=== PATIENT | male | born 1985 ===

== ENCOUNTER 2017-10-09 14:18 | Emergency (ER) | payer SELFPAY ==
[~2017-10-09] VITALS: Ht 185.4 cm; Wt 72.9 kg
[2017-10-09 14:23] VITALS: Ht 185.4 cm; Wt 72.9 kg
[2017-10-09] MEDS ORDERED: HYDR30CR75 PR (14:52)
[2017-10-09] MEDS ORDERED: DOCU-144 PO (14:52)
[2017-10-09] MEDS ORDERED: HYDR-906 PO (14:52)
[2017-10-09] MEDS ORDERED: LIDO40SO8 MM (14:53)
--- NOTE | 2017-10-09 14:57 | ERD ---
ER Documentation Chief Complaint Chief Complaint rectal pain/bleeding [id number] worse during BM HPI This 32-year-old male complains of rectal pain and bleeding for last 2 weeks. He had some diarrhea prior to this beginning. Is a bright red blood with bowel movements which are loose but no diarrhea or constipation. Has a history of hemorrhoids but these are much more severe. Denies any fevers, vomiting, abdominal pain. ROS All systems reviewed and are negative except as per history of present illness. Medications Home Meds Active Scripts Lidocaine 4% Topical (Lidocaine HCl) 4%-50 Ml Soln, 1 APPLIC MM q 1-2 h for 7 Days, BOT Prov:MARCIO AMES MD 10/09/17 Hydrocodone/Acetaminophen ([place] 5-325 Tablet) 1 Each Tablet, 1 EACH PO QID, # 15 TAB Prov:MARCIO AMES MD 10/09/17 Hydrocortisone Acetate* (Anusol-HC*) 30 Gm Cream.gm., 1 APPLIC RI TID for 10 Days, TUB Prov:MARCIO AMES MD 10/09/17 Docusate Sodium* (Colace*) 100 Mg Capsule, 100 MG PO TID, #60 CAP Prov:MACRIO AMES MD 10/09/17 Allergies Allergies: Coded Allergies: No Known Allergy (Unverified , 10/09/17) PMhx/Soc Medical and Surgical Hx: pt denies Medical Hx, pt denies Surgical Hx Hx Alcohol Use: No Hx Substance Use: No Hx Tobacco Use: No Smoking Status: Never smoker Physical Exam Vitals Vital Signs Date Time Temp Pulse Resp B/P Pulse Ox O2 Delivery O2 Flow Rate FiO2 10/09/17 14:23 96.8 86 20 117/65 100 Physical Exam Const: [] Alert, [id number]. Head: Atraumatic Eyes: Normal Conjunctiva ENT: Normal External Ears, Nose and Mouth. Neck: Full range of motion..~ No meningismus. Resp: Clear to auscultation bilaterally Cardio: Regular rate and rhythm, no murmurs Abd: Soft, non tender, non distended. Normal bowel sounds. Rectal exam shows significant external hemorrhoids with appears to be spontaneous evacuation of possible thrombosis. There is no erythema, warmth, fluctuance, active bleeding. Skin: No petechiae or rashes Back: No midline or flank tenderness Ext: No cyanosis, or edema Neur: Awake and alert Psych: Normal Mood and Affect Procedures/MDM Patient presents with painful external hemorrhoids. Signs or symptoms do not suggest abscess, active bleeding, hemorrhage, abdominal pain. He will be treated with Colace, short course of [place] viscous lidocaine and Anusol and general surgery referral for evaluation and treatment as well as return precautions for vomiting, fevers, worsening pain, new worsening symptoms otherwise with general surgery as directed. The patient was stable with no new complaints during the ER course. Clinically, there is no current evidence to suggest meningitis, sepsis, acute abdomen, pneumonia, acute coronary syndrome, pulmonary embolism, or any other emergent condition appearing to require further evaluation or hospitalization. The patient should certainly return for any new or worsening symptoms per the aftercare instructions. They should otherwise follow-up with her primary care doctor for reevaluation this week. Departure Diagnosis: Primary Impression: Acute hemorrhoid Condition: Stable Patient Instructions: Hemorrhoids Referrals: HEIDY LY MD, SAMUEL MD BAE, G. SEONG Additional Instructions: See surgeon for further management treatment. Warm soaks at home. Recheck for fevers, abdominal pain, vomiting, new or worsening symptoms otherwise. MARCIO AMES MD Oct 09, 2017 14:57
== END 2017-10-09 15:20 | disposition home or self-care (01) ==
LOC: FTE 14:18
DX: K64.8 Other hemorrhoids (principal)
CPT/HCPCS: 99283